=== PATIENT | female | born 1985 | race Caucasian/White ===

== ENCOUNTER 2017-03-11 14:13 | Inpatient (IN) | payer OTHER ==
[2017-03-11 14:37] VITALS: BMI 21.4
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
[2017-03-11] MEDS ORDERED: hydrOXYzine PAMOATE 25 MG CAPSULE (FP) PO PRN (15:35)
[2017-03-11] MEDS ORDERED: P-EPHED 60MG/TRIPROLIDI 2.5MG TABLET PO PRN (15:35)
[2017-03-11] MEDS ORDERED: IBUPROFEN 400 MG TABLET (FP) PO PRN (15:35)
[2017-03-11] MEDS ORDERED: ACETAMINOPHEN 325 MG TABLET (FP) PO PRN (15:35)
[2017-03-11] MEDS ORDERED: MAG HYDROX/AL HYDROX/SIMETH 30 ML UNIT-DOSE CUP PO PRN (15:35)
[2017-03-11] MEDS ORDERED: guaiFENesin/D-METHORPHAN HB 10 ML UNIT-DOSE CUPS PO PRN (15:35)
[2017-03-11] MEDS ORDERED: LOPERAMIDE HCL 2 MG CAPSULE PO PRN (15:35)
[2017-03-11] MEDS ORDERED: MAGNESIUM CITRATE 300 ML BOTTLE PO PRN (15:35)
[2017-03-11] MEDS ORDERED: MENTHOL/PHENOL 1 EACH UD MM PRN (15:35)
[2017-03-11] MEDS ORDERED: MAGNESIUM HYDROX 2400MG/30ML ORAL SUSPENSION 30 ML CUP PO PRN (15:35)
[2017-03-11] MEDS ORDERED: METHADONE HCL 10 MG TABLET (FOR DETOX USE ONLY) PO ONE ×2 (17:15→23:00)
[2017-03-11] MEDS ORDERED: diazePAM 5 MG TABLET PO ONE (17:15)
[2017-03-11] MEDS ORDERED: LIDOCAINE 5% TOPICAL PATCH TP ONE (17:15)
[2017-03-11] MEDS: THIAMINE HCL 100 MG TABLET (FP) PO SCH (23:13)
[2017-03-11] MEDS: diazePAM 5 MG TABLET PO SCH (23:14)
[2017-03-12] MEDS: diazePAM 5 MG TABLET PO SCH ×3 (05:43→22:27)
[2017-03-12] MEDS: diazePAM 5 MG TABLET PO PRN ×3 (07:14→17:58)
--- NOTE | 2017-03-12 08:25 | EKG ---
Test Reason : Blood Pressure : / mmHG Vent. Rate : 047 BPM Atrial Rate : 047 BPM P-R Int : 136 ms QRS Dur : 090 ms QT Int : 458 ms P-R-T Axes : 040 095 057 degrees QTc Int : 405 ms SINUS BRADYCARDIA RIGHTWARD AXIS BORDERLINE ECG NO PREVIOUS ECGS AVAILABLE Confirmed by GEOVANNA RODRIGUEZ, MICH ([id number]) on 03/12/2017 8:25:03 AM Referred By: Benja Wan Confirmed By:MICH AUSTIN MD
[2017-03-12] MEDS ORDERED: ONDANSETRON *ODT* 4 MG TABLET SL PRN (09:59)
[2017-03-12] MEDS ORDERED: METHADONE HCL 10 MG TABLET (FOR DETOX USE ONLY) PO SCH (10:00)
[2017-03-12] MEDS: LIDOCAINE 5% TOPICAL PATCH TP SCH (10:41)
[2017-03-12] MEDS: PRENATAL VITAMINS W/ FOLIC ACID TABLET (FP) PO SCH (10:41)
[2017-03-12] MEDS: NICOTINE 7 MG/24 HOURS TOPICAL PATCH TD SCH (10:42)
[2017-03-12 10:44] LABS: MCH 27.8 pg (25.7-33.7); MCHC 32.4 g/dl (32.0-36.0); MEAN CELL VOLUME 85.6 fl (80-96); MEAN PLT VOLUME 9.2 fl (7.5-11.1); PLATELET COUNT 193 K/MM3 (134-434); RDW 13.7 % (11.6-15.6); WHITE BLOOD COUNT 4.2 K/mm3 (4.0-10.0)
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
[2017-03-12 10:55] LABS: ALBUMIN 4.2 g/dl (3.4-5.0); ALK PHOS 92 U/L (45-117); ANION GAP 10 (8-16); BILIRUBIN,TOTAL 0.8 mg/dL (0.2-1.0); CALCIUM 9.3 mg/dL (8.5-10.1); CO2 27 mmol/L (21-32); COCKROFT - GAULT 106.1395; CREATININE 0.7 mg/dL (0.55-1.02); GLUCOSE,RANDOM 124 mg/dL (74-106); SGOT/AST 24 U/L (15-37); SGPT/ALT 17 U/L (12-78); TOT PROT 7.7 g/dl (6.4-8.2)
--- NOTE | 2017-03-12 11:35 | PN ---
[facility] CIWA - CIWA Score Nausea/Vomitin-No Nausea/No Vomiting Muscle Tremors: 3 Anxiety: 4-Mod. Anxious/Guarded Agitation: 4-Moderately Restless Paroxysmal Sweats: 3 Orientation: 0-Oriented Tacttile Disturbances: 0-None Auditory Disturbances: 0-None Visual Disturbances: 0-None Headache: 0-None Present CIWA-Ar Total Score: 14 BHS COWS - Scale Resting Pulse: 0= [place] 80 or Below Sweatin=Flushed/Facial Moisture Restless Observation: 1= Difficult to Sit Still Pupil Size: 0= Normal to Room Light Bone or Joint Aches: 2= Severe Diffuse Aches Runny Nose/ Eye Tearin= Nasal Congestion GI Upset > 30mins: 0= None Tremor Observation of Outstretched Hands: 2= Slight Tremor Visible Yawning Observation: 1= 1-2x During Session Anxiety or Irritability: 2=Irritable/Anxious Goose Flesh Skin: 3=Piloerection COWS Score: 14 S Progress Note (SOAP) Subjective: sweats agitation irritable interrupted sleep nausea back pain Objective: 03/12/17 11:34 Vital Signs Temperature 98.4 F 03/12/17 10:44 Pulse Rate 73 03/12/17 10:44 Respiratory Rate 18 03/12/17 10:44 Blood Pressure 124/80 03/12/17 10:44 O2 Sat by Pulse Oximetry (%) Laboratory Tests 03/12/17 03/12/17 06:00 06:00 WBC 4.2 RBC 4.74 Hgb 13.2 D Hct 40.6 D MCV 85.6 MCHC 32.4 RDW 13.7 Plt Count 193 MPV 9.2 D Sodium 139 Potassium 4.2 Chloride 102 Carbon Dioxide 27 Anion Gap 10 BUN 5 L D Creatinine 0.7 Creat Clearance w eGFR > 60 Random Glucose 124 H D Calcium 9.3 Total Bilirubin 0.8 D AST 24 D ALT 17 D Alkaline Phosphatase 92 D Total Protein 7.7 Albumin 4.2 labs pending awake/alert ambulating no acute distress Assessment: 03/12/17 11:34 withdrawal sx Plan: continue detox increase fluids labs pending zofran po prn lidocaine patch
[2017-03-12 12:54] LABS: HIV 1 & 2 AB NEGATIVE; HIV 1 AGp24 NEGATIVE
[2017-03-12] MEDS: NICOTINE POLACRILEX 2 MG GUM BC PRN (13:44)
[2017-03-12 15:27] LABS: URINE APPEARANCE CLOUDY; URINE BILIRUBIN NEGATIVE (NEGATIVE); URINE BLOOD NEGATIVE (NEGATIVE); URINE COLOR AMBER; URINE GLUCOSE (UA) NEGATIVE (NEGATIVE); URINE KETONE NEGATIVE (NEGATIVE); URINE NITRITE NEGATIVE (NEGATIVE); URINE PROTEIN NEGATIVE (NEGATIVE); URINE UROBILINOGEN NEGATIVE E.U./dl (0.2-1.0)
[2017-03-12 15:36] LABS: URINE LEUK ESTERASE TRACE (NEGATIVE)
[2017-03-12 16:02] LABS: URINE BACTERIA RARE /hpf (NONE SEEN); URINE MUCUS MANY; URINE RBC 14 /hpf (0-3); URINE WBC 5 /hpf (3-5)
[2017-03-12] MEDS ORDERED: QUEtiapine FUMARATE 100 MG TABLET (FP) PO SCH (22:00)
[2017-03-12] MEDS: diphenhydrAMINE HCL 50 MG CAPSULE PO PRN (22:27)
[2017-03-12] MEDS: THIAMINE HCL 100 MG TABLET (FP) PO SCH (22:27)
[2017-03-13] MEDS: diazePAM 5 MG TABLET PO PRN ×3 (01:06→12:49)
[2017-03-13] MEDS: diphenhydrAMINE HCL 50 MG CAPSULE PO PRN (01:07)
[2017-03-13] MEDS ORDERED: diazePAM 5 MG TABLET PO SCH (10:00)
[2017-03-13] MEDS ORDERED: METHADONE HCL 5 MG TABLET (FOR DETOX USE ONLY) PO SCH (10:00)
[2017-03-13 10:02] VITALS: BP 140/74; PULSE 73; TEMP 98.2
[2017-03-13] MEDS: PRENATAL VITAMINS W/ FOLIC ACID TABLET (FP) PO SCH (10:41)
[2017-03-13] MEDS: LIDOCAINE 5% TOPICAL PATCH TP SCH (10:43)
[2017-03-13] MEDS: NICOTINE 7 MG/24 HOURS TOPICAL PATCH TD SCH (10:43)
--- NOTE | 2017-03-13 12:40 | PN ---
S CIWA - CIWA Score Nausea/Vomitin Muscle Tremors: 2 Anxiety: 2 Agitation: 2 Paroxysmal Sweats: 3 Orientation: 0-Oriented Tacttile Disturbances: 1-Very Mild Itch/Numbness Auditory Disturbances: 0-None Visual Disturbances: 0-None Headache: 0-None Present CIWA-Ar Total Score: 13 BHS COWS - Scale Resting Pulse: 0= [place] 80 or Below Sweatin= Chills/Flushing Restless Observation: 1= Difficult to Sit Still Pupil Size: 1= Pupils >than Normal Bone or Joint Aches: 1= Mild Discomfort Runny Nose/ Eye Tearin= Nasal Congestion GI Upset > 30mins: 2= Nausea/Diarrhea Tremor Observation of Outstretched Hands: 1= Tremor [place], Not Seen Yawning Observation: 0= None Anxiety or Irritability: 1=Feels Anxious/Irritable Goose Flesh Skin: 0=Smooth Skin COWS Score: 9 BHS Progress Note (SOAP) Subjective: interrupted sleep, sweats, nausea Objective: 03/13/17 12:39 Vital Signs Temperature 98.2 F 03/13/17 10:01 Pulse Rate 73 03/13/17 10:01 Respiratory Rate 16 03/13/17 10:01 Blood Pressure 140/74 03/13/17 10:01 O2 Sat by Pulse Oximetry (%) Laboratory Tests 03/11/17 03/12/17 03/12/17 06:00 06:00 06:00 WBC 4.2 RBC 4.74 Hgb 13.2 D Hct 40.6 D MCV 85.6 MCHC 32.4 RDW 13.7 Plt Count 193 MPV 9.2 D Sodium 139 Potassium 4.2 Chloride 102 Carbon Dioxide 27 Anion Gap 10 BUN 5 L D Creatinine 0.7 Creat Clearance w eGFR > 60 Random Glucose 124 H D Calcium 9.3 Total Bilirubin 0.8 D AST 24 D ALT 17 D Alkaline Phosphatase 92 D Total Protein 7.7 Albumin 4.2 Urine Color Urine Appearance Urine pH Ur Specific [place] Urine Protein Urine Glucose (UA) Urine Ketones Urine Blood Urine Nitrite Urine Bilirubin Urine Urobilinogen Ur Leukocyte Esterase Urine RBC Urine WBC Ur Epithelial Cells Urine Bacteria Urine Mucus RPR Titer HIV 1&2 Antibody Screen Negative HIV P24 Antigen Negative 03/12/17 03/12/17 06:00 09:30 WBC RBC Hgb Hct MCV MCHC RDW Plt Count MPV Sodium Potassium Chloride Carbon Dioxide Anion Gap BUN Creatinine Creat Clearance w eGFR Random Glucose Calcium Total Bilirubin AST ALT Alkaline Phosphatase Total Protein Albumin Urine Color Caitlyn Urine Appearance Cloudy Urine pH 5.0 Ur Specific [place] 1.023 Urine Protein Negative Urine Glucose (UA) Negative Urine Ketones Negative Urine Blood Negative Urine Nitrite Negative Urine Bilirubin Negative Urine Urobilinogen Negative Ur Leukocyte Esterase Trace H Urine RBC 14 Urine WBC 5 Ur Epithelial Cells Many Urine Bacteria Rare Urine Mucus Many RPR Titer Nonreactive HIV 1&2 Antibody Screen HIV P24 Antigen pt aox3 in nad ambulating Assessment: 03/13/17 12:39 withdrawal sx's Plan: cont. detox increase fluids
[2017-03-13] MEDS: NICOTINE POLACRILEX 2 MG GUM BC PRN (13:57)
--- NOTE | 2017-03-13 15:49 | DS ---
[facility] Detox Discharge Summary Admission Date: 03/11/17 Discharge Date: 03/13/17 - History Present History: Cannabis Dependence, Opioid Dependence, Sedative Dependence - Physical Exam Results Vital Signs: Vital Signs Temperature 98.2 F 03/13/17 10:01 Pulse Rate 73 03/13/17 10:01 Respiratory Rate 16 03/13/17 10:01 Blood Pressure 140/74 03/13/17 10:01 O2 Sat by Pulse Oximetry (%) - Treatment Hospital Course: Detox Protocol Followed - Medication Discharge Medications: Ambulatory Orders Quetiapine Fumarate [Seroquel -] 100 mg PO HS 03/11/17 Quetiapine Fumarate [Seroquel] 100 mg PO HS #30 tablet 03/12/17 - Diagnosis (1) Chronic back pain Current Visit: Yes Status: Chronic Qualifiers: Back pain location: low back pain Back pain laterality: midline Sciatica presence: without sciatica Qualified Code(s): M54.5 - Low back pain; G89.29 - Other chronic pain (2) Nicotine dependence Current Visit: Yes Status: Chronic Qualifiers: Nicotine product type: cigarettes Substance use status: uncomplicated Qualified Code(s): F17.210 - Nicotine dependence, cigarettes, uncomplicated (3) Opioid dependence with withdrawal Current Visit: Yes Status: Chronic (4) Substance-induced anxiety disorder Current Visit: Yes Status: Chronic (5) Benzodiazepine abuse Current Visit: Yes Status: Chronic - AMA Did Patient Leave Against Medical Advice: Yes (walked off unit onher own -she couldn't wait. )
[2017-03-15] MEDS ORDERED: diazePAM 5 MG TABLET PO SCH (10:00)
[2017-03-15] MEDS ORDERED: METHADONE HCL 10 MG TABLET (FOR DETOX USE ONLY) PO SCH (10:00)
[2017-03-16] MEDS ORDERED: METHADONE HCL 5 MG TABLET (FOR DETOX USE ONLY) PO SCH (06:00)
== END 2017-03-13 15:45 | disposition left against medical advice (07) | DRG 770 ==
LOC: YASAS 14:13 → Y6N 16:45
PROVIDERS: ADMIT Internal Medicine Addiction Medicine; ATTEND Internal Medicine Addiction Medicine
PROC: HZ2ZZZZ Detoxification Services for Substance Abuse Treatment (ICD-10-PCS; principal; 2017-03-11)
DX: F11.23 Opioid dependence with withdrawal (principal); F13.10 Sedative, hypnotic or anxiolytic abuse, uncomplicated; F17.210 Nicotine dependence, cigarettes, uncomplicated; F19.280 Other psychoactive substance dependence with psychoactive substance-induced anxiety disorder; F19.24 Other psychoactive substance dependence with psychoactive substance-induced mood disorder; M54.5 Low back pain; G89.29 Other chronic pain
CPT/HCPCS: 36415; 80053; 81003; 81015; 85027; 86593; 87389; 93005; 93010